=== PATIENT | male | born 1990 | race Two or more races ===

== ENCOUNTER 2017-08-02 15:40 | Emergency (ER) | payer OTHER ==
[~2017-08-02] VITALS: Ht 157.5 cm; Wt 70.3 kg
[2017-08-02 19:50] VITALS: BP 143/89
[2017-08-02] MEDS ORDERED: TETANUS-DIPTH-ACEL PERTUSSIS 0.5ML SYRG IM ONE (20:15)
== END 2017-08-02 20:37 | disposition home or self-care (01) ==
LOC: ER 15:46
DX: S01.411A Laceration without foreign body of right cheek and temporomandibular area, initial encounter (principal); S13.4XXA Sprain of ligaments of cervical spine, initial encounter; M62.838 Other muscle spasm; V49.49XA Driver injured in collision with other motor vehicles in traffic accident, initial encounter; Y93.89 Activity, other specified; Y99.8 Other external cause status; Y92.410 Unspecified street and highway as the place of occurrence of the external cause
CPT/HCPCS: 12011; 70450; 72125; 73030; 73120; 90471; 90715

== ENCOUNTER 2025-04-04 20:17 | Emergency (ER) | payer OTHER ==
[~2025-04-04] VITALS: Ht 167.6 cm; Wt 68.0 kg
--- NOTE | 2025-04-04 20:38 | ED.PDOC ---
History of Present Illness HPI Comments 34-year-old male with past medical history of hypertension brought in by EMS due to alcohol intoxication. According to the EMS, patient was sleeping on gravel which prompted a bystander to call 911. Per EMS patient was noted to be slightly confused and slow to respond. At the time of my assessment patient is noted to be AO x3, sad affect, poor historian due to alcohol intoxication. An accurate review of systems could not be completed. Patient does not remember how many drinks he had today or when was the last drink he had. CIWA score was noted to be 4. Denies any acute medical complaints, tearful and sad affect, however, denies any suicidal or homicidal ideation. Chief Complaint: ALOC Time Seen by MD: 20:30 Primary Care Provider: ANDRES Allergies: Coded Allergies: NO KNOWN ALLERGIES (Unverified , 08/02/17) Information Source: Patient, Emergency Med Personnel Mode of Arrival: EMS Severity: Mild Timing: Hours Prehospital treatment: None Past Medical History PAST MEDICAL HISTORY: HTN Surgical History: Denies all surgeries Family History Family History: Unknown Social History Smoker: Other (Smokes 1 cigarette per day, uses vaporized tobacco) Alcohol: Other (Unable to give an accurate history, per patient drinks every t luz marina he is stressed) Drugs: Denies Drug Use Lives In: Other (Lives in his car) Constitutional: denies: chills, diaphoresis, fatigue, fever, malaise, sweats, weakness, others EENTM: denies: blurred vision, double vision, ear bleeding, ear discharge, ear drainage, ear pain, ear ringing, eye pain, eye redness, hearing loss, mouth pain, mouth swelling, nasal discharge, nose bleeding, nose congestion, nose pain, photophobia, tearing, throat pain, throat swelling, voice changes, others Respiratory: denies: cough, hemoptysis, orthopnea, SOB at rest, shortness of breath, SOB with excertion, stridor, wheezing, others Cardiovascular: denies: chest pain, dizzy spells, diaphoresis, Dyspnea on exertion, edema, irregular heart beat, left arm pain, lightheadedness, pal pitations, PND, syncope, others Gastrointestinal: denies: abdomen distended, abdominal pain, blood streaked bowels, constipated, diarrhea, dysphagia, difficulty swallowing, hematemesis, melena, nausea, poor appetite, poor fluid intake, rectal bleeding, rectal pain, vomiting, others Genitourinary: denies: burning, dysuria, flank pain, frequency, hematuria, incontinence, penile discharge, penile sore, pain, testicle pain, testicle swelling, urgency, others Neurological: denies: dizziness, fainting, headache, left sided numbness, left sided weakness, numbness, paresthesia, pre-existing deficit, right sided numbness, right sided weakness, seizure, speech problems, tingling, tremors, weakness, others Musculoskeletal: denies: back pain, gout, joint pain, joint swelling, muscle pain, muscle stiffness, neck pain, others Integumetry: denies: bruises, change in color, change in hair/nails, dryness, laceration, lesions, lumps, rash, wounds, others Allergic/Immunocompromised: denies: Difficulty Healing, Frequent Infections, Hives, Itching, others Hematologic/Lymphatic: denies: anemia, blood clots, easy bleeding, easy bru ising, swollen glands, others Endocrine: denies: excessive hunger, excessive sweating, excessive thirst, e xcessive urination, flushing, intolerance to cold, intolerance to heat, unexplained weight gain, unexplained weight loss, others Psychiatric: denies: anxiety, bipolar disorder, depression, hopeless, panic disorder, schizophrenia, sleepless, suicidal, others Physical Exam General Appearance: Mild Distress HEENT: Normal ENT Inspection, PERRL/EOMI Neck: Non-Tender, Normal, Normal Inspection Respiratory: No Accessory Muscle Use, None, No Respiratory Distress, Normal Breath Sounds Cardiovascular: Tachycardia Breast Exam: Deferred Gastrointestinal: Non Tender, No Pulsatile Mass, Normal Bowel Sounds Genitalia: Deferred Pelvic: Deferred Rectal: Rectal Exam not done Extremities: No calf tenderness, Non-tender, No pedal edema Neurologic: Alert, No Motor Deficits, No Sensory Deficits Cerebellar Function: Normal Reflexes: NOT DONE Skin: Dry, Normal Color Peripheral Pulses: 2+ dorsalis pedis (R), 2+ dorsalis pedis (L) Lymphatic: NOT DONE Was a procedure done? Was a procedure done?: No Differential Dx Considerations may include: Alcohol intoxication Homelessness X-Ray, Labs, Meds, VS Vital Signs Date Time Temp Pulse Resp B/P (MAP) Pulse Ox O2 Delivery O2 Flow Rate FiO2 04/05/25 03:37 98.3 106 20 126/86 (99) 99 98.3 04/05/25 00:41 97.8 100 20 129/97 (108) 98 97.8 04/04/25 20:17 98.1 110 16 158/80 98 98.1 Current Medications Medications (Trade) Dose Ordered Sig/Nehemias Route Start Time Stop Time Status Last Admin Chlordiazepoxide HCl (Librium Capsule) 25 mg ONCE ONCE PO 04/04/25 21:00 04/04/25 21:05 DC 04/05/25 05:30 Time of 1ST Reevaluation: 22:30 Reevaluation 1ST: Unchanged Time of 2ND Reevaluation: 02:30 Reevaluation 2ND: Improved Patient Education/Counseling: Diagnosis, Treatment, Prognosis, Need For Follow Up Family Education/Counseling: No Family Present SEPSIS Sepsis Screen Date sepsis recognized/suspect: Apr 04, 2025 Time Sepsis recognized/suspect: 2016 Recent Procedure: No On Antibiotic Therapy: No Respiratory Rate >20: No Heart Rate >90: No Temp<36 C (96.8 F) or >38.3 C: No SBP <90 or MAP <65 mmHG: No New Acute Mental Status Change: No Is the patient on CPAP, BIPAP,: No Vital Signs Date Time Temp Pulse Resp B/P (MAP) Pulse Ox O2 Delivery O2 Flow Rate FiO2 04/05/25 03:37 98.3 106 20 126/86 (99) 99 98.3 04/05/25 00:41 97.8 100 20 129/97 (108) 98 97.8 04/04/25 20:17 98.1 110 16 158/80 98 98.1 Medications Medications Dose Ordered Sig/Nehemias Route Start Time Stop Time Status Last Admin Dose Admin Chlordiazepoxide HCl 25 mg ONCE ONCE PO 04/04/25 21:00 04/04/25 21:05 DC 04/05/25 05:30 Departure 1 Departure Time of Disposition: 05:31 Impression: Primary Impression: Alcohol intoxication Qualified Codes: F10.920 - Alcohol use, unspecified with intoxication, uncomplicated Additional Impression: Homelessness Disposition: HOME / SELF CARE / HOMELESS Condition: Stable Comments Noted to have no withdrawal symptoms, mainly noted to have acute alcohol intoxication which subsequently improved during the course of his ER stay. Patient was hydrated with IV hydration 1 L NS, 1 dose of Librium p.o. 25 mg. Patient uneventfully ambulated in the ER without assistance, patient was provided with a sandwich and juice, milk which he tolerated well without any nausea and/or vomiting. Patient was departed from the ER with stable vital signs, with strict return precautions to which patient demonstrated understanding. Alcohol cessation counseling was done extensively. Critical Care Note Critical Care Time?: No Stability Stability form required: ANUEL Kirkpatrick RESIDENT Apr 04, 2025 20:38
[2025-04-04] MEDS: SODIUM CHLORIDE 0.9% 1,000 ML IV ONE (20:45)
[2025-04-05 06:30] VITALS: BP 118/78; PULSE 111; RESP 16; TEMP 98.7; O2SAT 97
== END 2025-04-05 06:39 | disposition home or self-care (01) ==
LOC: EDBD 20:17 → ER 20:17
DX: F10.129 Alcohol abuse with intoxication, unspecified (principal); I10 Essential (primary) hypertension; F17.210 Nicotine dependence, cigarettes, uncomplicated; Z59.02 Unsheltered homelessness; Y90.9 Presence of alcohol in blood, level not specified